=== PATIENT | female | born 1985 | race Caucasian/White ===

== ENCOUNTER 2020-11-28 14:01 | Emergency (ER) | payer OTHER, SELFPAY ==
--- NOTE | ~2020-11-28 | CT_ITS ---
EXAMINATION: CT abdomen pelvis wo con DATE: 11/28/2020 17:04 INDICATION: Right flank pain and nausea TECHNIQUE: Computed tomography (CT) of the abdomen and pelvis was performed without intravenous contr ast. The dose-length product was 251.88 mGy-cm. Automated exposure control and iterative reconstructi on technique were employed. COMPARISON: CT dated 09/27/2006 FINDINGS: Lung bases are unremarkable. Heart size is normal. No significant pleural or pericardial ef fusion. Small hypodensities of the spleen are likely benign, although not well characterized without contrast. Nonobstructive bowel gas pattern. There is a 4 mm right UVJ stone with mild hydronephrosis. No left renal stones. No left hydronephrosis. No abnormal pelvic masses or fluid collections. The liver, pancreas, adrenal glands are unremarkable. Gallbladder is present. No free air or free flu id. Small fat-containing umbilical hernia. IMPRESSION: 1. Right UVJ stone measuring 4 mm with mild hydronephrosis. Reviewed, dictated and finalized at location A.
[2020-11-28 14:10] VITALS: BP 142/94; PULSE 86; RESP 17; TEMP 36.4; O2SAT 99
[2020-11-28 14:28] LABS: Basophils Absolute Auto 0.1 K/mm3 (0.0-0.1); Basophils Percent Auto 0.4 % (0.2-1.2); Eosinophils Absolute Auto 0.1 K/mm3 (0-0.3); Eosinophils Percent Auto 0.7 % (0-4.4); Hemoglobin 14.8 g/dL (12.0-15.0); Immature Granulocyte Absolute 0.03 K/mm3 (0.00-0.031); Immature Granulocyte Percent A 0.3 % (0-0.5); Lymphocytes Absolute Auto 2.17 K/mm3 (0.9-3.2); Lymphocytes Percent Auto 19.3 % (18.3-44.2); Mean Corpuscular HGB Conc 35.2 g/dl (32-36); Mean Corpuscular Volume 90.7 fl (80-100); Mean Platelet Volume 8.7 fl (7.4-10.4); Monocytes Absolute Auto 0.6 K/mm3 (0.1-0.6); Monocytes Percent Auto 4.9 % (2.6-8.5); Neutrophils Absolute Auto 8.4 K/mm3 (1.3-6.7); Neutrophils Percent Auto 74.4 % (45.5-73.1); Platelet Count Result 306 k/mm3 (150-375); Red Blood Count 4.63 M/mm3 (4.2-5.4); Red Cell Distribution Width 12.5 % (11.5-14.5); White Blood Count 11.3 K/mm3 (4.5-10.0)
[2020-11-28 14:54] LABS: Alanine Aminotransferase 17 U/L (4-35); Albumin Level 4.3 g/dL (3.5-5.1); Alkaline Phosphatase 120 U/L (38-126); Anion Gap 11 mmol/L (8-16); Aspartate Amino Transferase 29 U/L (14-36); Bilirubin,Total 0.4 mg/dL (0.2-1.3); Blood Urea Nitrogen 10 mg/dL (7-17); Calcium 9.3 mg/dL (8.4-10.2); Carbon Dioxide 20 mmol/L (22-30); Chloride 108 mmol/L (98-107); Estimated CRCL calculation 93 ml/min; Estimated Glomerular Filt Rate > 60; Glucose 93 mg/dL (65-105); Lipase 61 U/L (23-300); Potassium 3.8 mmol/L (3.4-5.0); Sodium 139 mmol/L (137-145)
[2020-11-28 16:15] VITALS: BP 117/89; PULSE 96; RESP 16; TEMP 36.4; O2SAT 100
[2020-11-28 16:42] LABS: Add Urine Microscopic? YES; Appearance Urine Cloudy (Clear); Bacteria Urine Trace /hpf; Bilirubin Urine Negative (Negative); Blood Urine 3+ (Negative); Color Urine Yellow (Yellow); Glucose Urine UA Negative (Negative); Ketones Urine 1+ mg/dL (Negative); Leukocyte Esterase Ur Negative LEU/UL (Negative); Mucus Urine Heavy /lpf; Nitrate Urine Negative (Negative); Protein Urine 2+ mg/dL (Negative); RBC Urine >75 /hpf (0-2); Specific Grav Ur 1.023 (1.001-1.035); Squamous Epithelial Cell Urine Few /hpf (Few); Urobilinogen Urine Negative mg/dL (<2.0); WBC Urine 0-3 /hpf
--- NOTE | 2020-11-28 16:56 | PC.NURSE ---
Patient to radiology.
--- NOTE | 2020-11-28 17:35 | ED.GENADULT ---
HPI - General Adult General Chief complaint: Abdominal Pain Stated complaint: R Flank Pain Time Seen by Provider: 11/28/20 15:30 Source: patient, family and RN notes reviewed Mode of arrival: ambulatory Limitations: no limitations History of Present Illness HPI narrative: Patient is a 35-year-old female who presents to emergency department for evaluation of flank pain on the right side that began acutely today patient notes that the pain felt consistent with a prior kidney stone patient has not taken anything for his symptoms presents in no distress does not appear uncomfortable denies fever does note nausea Related Data Allergies Allergy/AdvReac Type Severity Reaction Status Date / Time imipramine Allergy Unknown Unknown Verified 04/28/20 09:33 PMFSH Past Medical History Medical History Depression Endometriosis Kidney stone passed advised urology Lipoma Scoliosis Family History Family History Grandparent Diabetes mellitus Family history of cardiovascular disease Family history of emphysema Family history of throat cancer Father Family history of suicide Patient's father is in good health Mother Family history of seizure disorder Family history of epilepsy Social History Social History Smoking status: Never smoker Second hand tobacco smoke exposure: No Alcohol intake: current Substance use: never Gender identity (if verbalized by the patient): Female Exam Narrative: Exam Narrative: GENERAL: Well-appearing, well-nourished, and in no acute distress. HEAD: Normocephalic, atraumatic. EYES: PERRLA and EOMI. ENT: Nares clear, no rhinorrhea or epistaxis. Mucous membranes moist. CHEST: Clear to auscultation. No respiratory distress. No wheezes rales or rhonchi HEART: Regular rate and rhythm. No murmur heard. Normal peripheral pulses. ABDOMEN: Soft, nontender, nondistended EXTREMITIES: Normal range of motion. No edema. SKIN: Warm, dry, no rash. NEURO: No focal deficits. Alert and oriented x3. PSYCH: Normal mood and affect. Course Course Emergency Course: Patient with urolithiasis will be referred back to urology with attempted outpatient treatment patient agreeing with this is afebrile nontoxic-appearing no distress and felt appropriate for outpatient reevaluation Consultations Consultation #1: Discussed case with urology who will follow patient in clinic Date: 11/28/20 Time: 18:26 Vital Signs Vital signs: Vital Signs Temperature 97.6 F 11/28/20 14:10 Pulse Rate 86 11/28/20 14:10 Respiratory Rate 17 11/28/20 14:10 Blood Pressure 142/94 H 11/28/20 14:10 Pulse Oximetry 99 11/28/20 14:10 Temperature 97.5 F L 11/28/20 16:15 Pulse Rate 96 11/28/20 16:15 Respiratory Rate 16 11/28/20 16:15 Blood Pressure 117/89 11/28/20 16:15 Pulse Oximetry 100 11/28/20 16:15 Medical Decision Making MDM Narrative Medical decision making narrative: Patient with urolithiasis afebrile nontoxic-appearing no distress hydrated medicated in the emergency department with improvement of discomfort will be discharged with outpatient follow-up with urology with reasons to return Vital Signs Vital Signs: Vital Signs Temperature 97.6 F 11/28/20 14:10 Pulse Rate 86 11/28/20 14:10 Respiratory Rate 17 11/28/20 14:10 Blood Pressure 142/94 H 11/28/20 14:10 Pulse Oximetry 99 11/28/20 14:10 Temperature 97.5 F L 11/28/20 16:15 Pulse Rate 96 11/28/20 16:15 Respiratory Rate 16 11/28/20 16:15 Blood Pressure 117/89 11/28/20 16:15 Pulse Oximetry 100 11/28/20 16:15 Lab Data Result diagrams: 11/28/20 14:16 11/28/20 14:16 Labs: Lab Results 11/28/20 11/28/20 11/28/20 Range/Units 14:16 14:16 16:27 WBC 11.3 H (4.5-10.0) K/mm3 RBC 4.63 (4.2-5.4) M/mm3
[2020-11-28] MEDS: SODIUM CHLORIDE 0.9% IV 1,000 ML 999 ML IV CONT ×2 (17:36→18:31)
[2020-11-28] MEDS: ONDANSETRON INJ 4 MG/2 ML VIAL IV PUSH (17:38)
[2020-11-28] MEDS: FAMOTIDINE 20 MG/2 ML VIAL IV PUSH (17:39)
[2020-11-28] MEDS: KETOROLAC 30 MG/ML VIAL (*BKC) IV PUSH (18:31)
[2020-11-28 19:40] VITALS: BP 121/72; PULSE 89; RESP 16; O2SAT 100
== END 2020-11-28 19:40 | disposition home or self-care (01) ==
PROVIDERS: Emergency Provider Emergency Medicine; PCP Family Medicine
DX: N13.2 Hydronephrosis with renal and ureteral calculous obstruction (principal); N80.9 Endometriosis, unspecified; Z87.442 Personal history of urinary calculi
CPT/HCPCS: 36415; 74176; 80053; 81001; 81025; 83690; 85025; 96365; 96366; 96375; 99284; J0131; J1885; J2405; J7030

== ENCOUNTER 2022-03-04 10:04 | Outpatient (CLI) | payer OTHER, SELFPAY ==
[2022-03-04 18:30] LABS: Hematocrit 50.9 % (37.0-47.0); Mean Corpuscular HGB Conc 33.4 g/dl (32-36); Mean Corpuscular Hemoglobin 32.5 pg (26-34); Mean Corpuscular Volume 97.3 fl (80-100); Mean Platelet Volume 9.5 fl (7.4-10.4); Platelet Count Result 350 k/mm3 (150-375); Red Blood Count 5.23 M/mm3 (4.2-5.4); Red Cell Distribution Width 12.9 % (11.5-14.5); White Blood Count 8.3 K/mm3 (4.5-10.0)
[2022-03-04 19:04] LABS: Alanine Aminotransferase 18 U/L (6-35); Albumin Level 4.7 g/dL (3.5-5.1); Alkaline Phosphatase 113 U/L (38-126); Anion Gap 14 mmol/L (8-16); Aspartate Amino Transferase 24 U/L (14-36); Bilirubin,Total 0.5 mg/dL (0.2-1.3); Blood Urea Nitrogen 11 mg/dL (7-17); Calcium 10.2 mg/dL (8.4-10.2); Carbon Dioxide 22 mmol/L (22-30); Chloride 102 mmol/L (98-107); Cholesterol 236 mg/dL (0-200); Estimated Glomerular Filt Rate > 60; Glucose 92 mg/dL (65-110); HDL Direct 60 mg/dL; Potassium 4.4 mmol/L (3.4-5.0); Sodium 138 mmol/L (137-145); Triglycerides 251 mg/dL (<150)
[2022-03-04 19:14] LABS: LDL Cholesterol Direct 147 mg/dL
[2022-03-04 20:06] LABS: Vitamin D 25 Hydroxy 72.3 ng/mL
== END 2022-03-04 10:05 | disposition home or self-care (01) ==
PROVIDERS: PCP Family Medicine; Visit Provider Family Medicine
DX: Z00.00 Encounter for general adult medical examination without abnormal findings (principal); F32.9 Major depressive disorder, single episode, unspecified
CPT/HCPCS: 36415; 80053; 80061; 82306; 84443; 85027

== ENCOUNTER 2022-05-24 15:55 | Emergency (ER) | payer OTHER, SELFPAY ==
--- NOTE | ~2022-05-24 | XR_ITS ---
XR chest 2V DATE: 05/24/2022 16:22 INDICATION: Cough, fever, crackles. Fatigue. TECHNIQUE: 2 views COMPARISON: 11/21/2010 PA chest FINDINGS: Normal heart size. No hilar or mediastinal enlargement. No pulmonary infiltrate or consolid ation, pleural effusion or pulmonary vascular congestion or pneumothorax. Prominent thoracic scoliosis. IMPRESSION: No active cardiopulmonary disease Reviewed, dictated and finalized at location B. [facility]RESS
[2022-05-24 15:59] VITALS: BP 166/93; PULSE 118; RESP 16; TEMP 36.6; O2SAT 99
--- NOTE | 2022-05-24 16:18 | ED.URI ---
HPI - URI/Sore Throat General Chief Complaint: Upper Respiratory Infection Stated Complaint: cough aches headache Time Seen by Provider: 05/24/22 16:12 Source: patient Mode of arrival: ambulatory Limitations: no limitations History of Present Illness HPI Narrative: Patient presents today with 10 day history of dry cough has been worsening since onset with fatigue, body aches, rhinorrhea, nasal congestion. Reports the congestion has been improving since onset. She also reports some mild shortness of breath over the past 3 days. She has been taking Mucinex and NyQuil with some relief. She is currently on a prednisone taper for same symptoms. She tested for COVID-19 and influenza last week and both were negative. Related Data Home Medications Medication Instructions Recorded Confirmed desogestrel-e.estradiol 0.15 1 tablet PO DAILY 05/24/22 05/24/22 mg-0.02 mg(21)/e.estrad 0.01 mg(5) tablet (Viorele (28)) prednisone 10 mg tablet See Rx Instructions .Route .COMPLEX 05/24/22 05/24/22 Allergies Allergy/AdvReac Type Severity Reaction Status Date / Time imipramine Allergy Unknown Unknown Verified 05/24/22 16:26 Review of Systems Review of Systems: CONSTITUTIONAL: Denies fever, chills, or sweats.+ body aches, fatigue EYES: Denies visual changes, redness, or discharge. ENT: Denies sore throat, or otalgia.+ congestion, rhinorrhea CARDIOVASCULAR: Denies chest pain, palpitations, or edema. RESPIRATORY: + cough, shortness of breath GASTROINTESTINAL: Denies abdominal pain, nausea, vomiting, or diarrhea. GENITOURINARY: Denies dysuria or hematuria. SKIN: Denies rash, itching, or wounds. MUSCULOSKELETAL: Denies back pain, joint pain, or myalgia. NEUROLOGIC: Denies headache, numbness, tingling, or weakness. PSYCH: Denies depression or anxiety. [facility] Past Medical History Medical History Depression Endometriosis Kidney stone passed advised urology Lipoma Scoliosis Family History Family History Grandparent Diabetes mellitus Family history of cardiovascular disease Family history of emphysema Family history of throat cancer Father Family history of suicide Patient's father is in good health Mother Family history of seizure disorder Family history of epilepsy Social History Social History Smoking status: Never smoker Second hand tobacco smoke exposure: No Alcohol intake: current Substance use: never Gender identity (if verbalized by the patient): Female Comments At time of signature, I have reviewed and agree with nursing past medical, surgical, social and family history unless otherwise noted. Please see nursing chart for further information. There is no relevant family history pertinent to the presenting complaint Exam Narrative: GENERAL: Mildly ill-appearing, well-nourished, and in no acute distress. HEAD: Normocephalic, atraumatic. EYES: EOMI. No redness or drainage. Conjunctivae normal. ENT: Mucous membranes pink and moist. Nares congested. No rhinorrhea. TMs normal bilaterally. Throat normal. Uvula midline. NECK: Normal AROM. Supple. No lymphadenopathy. CHEST: No respiratory distress. Clear to auscultation. Harsh cough noted. HEART: Regular rhythm.+ tachycardia. No murmur appreciated. Normal peripheral pulses. EXTREMITIES: Normal range of motion. No edema. SKIN: Warm, dry, no rash. Capillary refill normal. Normal skin turgor. NEURO: No focal deficits. Alert and oriented x3. Gait steady. PSYCH: Normal affect. No signs of depression or anxiety. Course Course Level of Care: Express Care Visit Vital Signs Vital signs: Vital Signs Temperature 97.8 F 05/24/22 15:59 Pulse Rate 118 H 05/24/22 15:59 Respiratory Rate 16 05/24/22 15:59 Blood Pressure 166/93 H 05/24/22 15:59 Pulse Oximetr
== END 2022-05-24 17:25 | disposition home or self-care (01) ==
PROVIDERS: Emergency Provider Nurse Practitioner; PCP Family Medicine
DX: J40 Bronchitis, not specified as acute or chronic (principal); N80.9 Endometriosis, unspecified; M41.9 Scoliosis, unspecified; F32.A Depression, unspecified
CPT/HCPCS: 71046; 99213; G0463

== ENCOUNTER 2022-08-12 11:33 | Outpatient (CLI) | payer OTHER, SELFPAY ==
[2022-08-12 21:34] LABS: Basophils Absolute Auto 0.1 K/mm3 (0.0-0.1); Basophils Percent Auto 0.5 % (0.2-1.2); Eosinophils Absolute Auto 0.1 K/mm3 (0-0.3); Eosinophils Percent Auto 0.6 % (0-4.4); Hematocrit 45.6 % (37.0-47.0); Hemoglobin 15.4 g/dL (12.0-15.0); Immature Granulocyte Absolute 0.02 K/mm3 (0.00-0.031); Immature Granulocyte Percent A 0.2 % (0-0.5); Lymphocytes Absolute Auto 2.96 K/mm3 (0.9-3.2); Lymphocytes Percent Auto 31.2 % (18.3-44.2); Mean Corpuscular HGB Conc 33.8 g/dl (32-36); Mean Corpuscular Hemoglobin 32.5 pg (26-34); Mean Corpuscular Volume 96.2 fl (80-100); Mean Platelet Volume 9.1 fl (7.4-10.4); Monocytes Absolute Auto 0.5 K/mm3 (0.1-0.6); Monocytes Percent Auto 5.6 % (2.6-8.5); Neutrophils Absolute Auto 5.9 K/mm3 (1.3-6.7); Neutrophils Percent Auto 61.9 % (45.5-73.1); Platelet Count Result 339 k/mm3 (150-375); Red Blood Count 4.74 M/mm3 (4.2-5.4); Red Cell Distribution Width 12.3 % (11.5-14.5); White Blood Count 9.5 K/mm3 (4.5-10.0)
[2022-08-15 11:36] LABS: Erythropoietin (EPO) 15.4 mIU/mL (2.6-18.5)
== END 2022-08-12 11:34 | disposition home or self-care (01) ==
PROVIDERS: PCP Family Medicine; Visit Provider Family Medicine
DX: D75.1 Secondary polycythemia (principal)
CPT/HCPCS: 36415; 82668; 85025

== ENCOUNTER 2024-09-04 10:22 | Emergency (ER) | payer OTHER, SELFPAY ==
[2024-09-04 10:28] VITALS: BP 138/96; PULSE 112; RESP 20; TEMP 36.6; O2SAT 99
--- NOTE | 2024-09-04 10:36 | ED.DENTAL ---
HPI - Dental/Oral General Chief complaint: Dental/Oral Stated complaint: Dental Pain Time Seen by Provider: 09/04/24 10:48 Mode of arrival: ambulatory Limitations: no limitations History of Present Illness HPI Narrative: 38-year-old female presents with concern for left lower dental pain. Reports symptoms started on . Reports she had fillings done in that area recently. She reports some jaw swelling. She reports irritation and pain when chewing. MD Complaint: tooth pain Related Data Home Medications ?Medication ?Instructions ?Recorded ?Confirmed ?Last Taken ?Type desogestrel-e.estradiol 0.15 1 tablet PO DAILY 05/24/22 09/04/24 Unknown History mg-0.02 mg(21)/e.estrad 0.01 mg(5) tablet (Viorele (28)) spironolactone 100 mg tablet mg 09/04/24 Unknown History Allergies Allergy/AdvReac Type Severity Reaction Status Date / Time imipramine Allergy Unknown Unknown Verified 09/04/24 10:25 Review of Systems Review of Systems: CONSTITUTIONAL: Denies malaise, chills, sweats, or fever. EYES: Denies visual changes ENT: Denies rhinorrhea, congestion, sinus pain, otalgia or sore throat. Reports left lower dental pain my jaw swelling CARDIOVASCULAR: Denies chest pain, palpitations RESPIRATORY: Denies cough or dyspnea. SKIN: Denies rash or itching. MUSCULOSKELETAL: Denies myalgia. NEUROLOGIC: Denies numbness, weakness, or headache. All systems reviewed & are unremarkable except as noted in HPI and below PMFSH Past Medical History Medical History Depression Endometriosis Kidney stone passed advised urology Lipoma Scoliosis Family History Family History Grandparent Diabetes mellitus Family history of cardiovascular disease Family history of emphysema Family history of throat cancer Father Family history of suicide Patient's father is in good health Mother Family history of seizure disorder Family history of epilepsy Social History Social History (Updated 08/12/22 @ 11:24 by Peace Maurice MA) Smoking status: Never smoker Second hand tobacco smoke exposure: No Alcohol intake: current Substance use: never Lack of Transportation: No Lack of Food: Never True Current Housing: I Have Housing Concerned About Future Housing: No Difficulty Paying Gas/Electric Bills: No Difficulty Paying for Meds: No Education: Associate Degree Difficulty w/ Childcare or Family Care: No Gender identity (if verbalized by the patient): Female Comments At time of signature, agree with nursing past medical, surgical, social and family history. There is no relevant family history pertinent to the presenting complaint Exam Narrative: GENERAL: Well-appearing, well-nourished, and in no acute distress. HEAD: Normocephalic, atraumatic. EYES: PERRLA, sclera clear ENT: Nares clear, turbinates pink, no rhinorrhea or epistaxis. Mucous membranes moist. TM pearly henao with sharp light reflex bilaterally; no tragal tenderness. Oropharynx without erythema or lesions. Tonsils not enlarged and without exudate. No Missing teeth, broken teeth, caries. Mild Left jaw swelling noted NECK: Supple. No lymphadenopathy. CHEST: No respiratory distress. Speaks in full sentences. HEART: Regular rate and rhythm. SKIN: Warm, dry, no visible rash. NEURO: Alert and oriented x3. PSYCH: Normal mood and affect Course Course Emergency Course: Patient is aware of diagnosis, understands and agrees to treatment plan. Anticipatory guidance given. Patient agrees to follow-up as directed and is aware of reasons to seek care at the emergency department. Portions of this record may have been created with voice recognition software Level of Care: Express Care Visit Vital Signs Vital signs: Vital Signs Temperature 97.8 F 09/04/24 10:28 Pulse Rate 112 H 09/04/24 10:28 Respiratory Rate 20 09/04/24 10:28 Blood Pressure 138/96 H 09/04/24 10:28 Pulse Oximetry 99 09/04/24 10:28 Oxygen Delivery Room Air 09/04/24 10:28 Temperature 97.8 F 09/04/24 10:28 Pulse Rate 112 H 09/04/24 10:28 Respiratory Rate 20 09/04/24 10:28 Blood Pressure 138/96 H 09/04/24 10:28 Pulse Oximetry 99 09/04/24 10:28 Oxygen Delivery Room Air 09/04/24 10:28 Reviewed. MDM - Dental/Oral MDM Narrative Medical decision making narrative: I evaluated this in the express care. History is obtained from patient who is an independent historian and physical exam was performed.? Available medical records were reviewed. ? Exam findings and relevant testing show no acute concerns or changes; patient is non-toxic appearing and is in no distress. Patients pain and complaint coupled with physical findings are consistant with dentalgia. There are no focal signs of space occupying lesions that are compromising to the airway; no dysphagia, odynophagia, dysphonia, or dyspnea. No uvular deviation or soft palate edema. Patient is non-toxic appearing. The floor of the mouth is soft with no signs of Camacho's Angina; no induration below mandible, no neck pain. Patient is without trismus or drooling and able to swallow secretions. Patient is felt appropriate for discharge home with dental follow up. ? Differential diagnosis and treatment plan were discussed with the patient. Patient agrees with discussion and after shared medical decision making agrees with plan of care. All questions were answered to the patient's satisfaction. Patient is appropriate for outpatient treatment and follow-up. Differential Diagnosis Differential diagnosis: Likely gingival abscess, dental caries, toothache, dental abscess, fracture of tooth and aphthous ulcer Critical Care Time Critical Care Time Critical Care Time: No Discharge Plan Discharge Clinical Impression: Toothache Patient Disposition: Home, Self-Care Condition: Stable Instructions: Antibiotic Form, Toothache (ED) Additional Instructions: Take antibiotic as directed Avoid temperature extremes May apply heat or ice to the face Gentle brushing and flossing Take 2 extra strength Tylenol, 4 ibuprofen, 80 mg of caffeine at same time. You can do this every 6 hours. Do not do this for more than 2 - 3 days. You can substitute 25 mg Benadryl at nighttime for caffeine to help you sleep. Do this for no more than 3 days. Follow-up with the dentist as soon as possible Patient Language: [place] Prescriptions: New amoxicillin-pot clavulanate 875-125 mg tablet 1 tablet PO Q12H 10 Days Qty: 20 0RF No Action desog-e.estradiol/e.estradiol [Viorele (28)] 0.15-0.02 mgx21 /0.01 mg x 5 tablet 1 tablet PO DAILY spironolactone 100 mg tablet cetirizine [Zyrtec] 10 mg tablet 10 mg PO DAILY Qty: 90 1RF sertraline 100 mg tablet See Rx Instructions .ROUTE .COMPLEX Qty: 90 1RF Dose Instruction: TAKE ONE TABLET BY MOUTH EVERY DAY Rx Instructions: TAKE ONE TABLET BY MOUTH EVERY DAY hydroxyzine HCl 50 mg tablet See Rx Instructions .ROUTE .COMPLEX Qty: 90 1RF Dose Instruction: TAKE ONE TABLET BY MOUTH FOUR TIMES A DAY NEEDED FOR ITCHING Rx Instructions: TAKE ONE TABLET BY MOUTH FOUR TIMES A DAY NEEDED FOR ITCHING Zepbound 7.5 mg/0.5 mL pen injector 7.5 mg subcut WEEKLY Qty: 2 0RF Follow-up/Referrals: Evelyn Loo APRN [Primary Care Provider] - Time of Disposition: 10:54
== END 2024-09-04 10:58 | disposition home or self-care (01) ==
PROVIDERS: Emergency Provider Nurse Practitioner; PCP Nurse Practitioner Adult Health
DX: K08.89 Other specified disorders of teeth and supporting structures (principal)
CPT/HCPCS: 99213; G0463